=== PATIENT | male | born 1955 | race Caucasian/White ===

== ENCOUNTER 2016-09-15 08:47 | Outpatient (RCR) | payer OTHER | END 2016-11-14 14:37 | disposition home or self-care (01) | LOC: PT 08:47 | DX: T84.84XD Pain due to internal orthopedic prosthetic devices, implants and grafts, subsequent encounter (principal) ==

== ENCOUNTER → 2016-11-03 | Outpatient (CLI) | payer OTHER | LOC: LAB 08:07 | DX: E11.9 Type 2 diabetes mellitus without complications (principal); I10 Essential (primary) hypertension; E78.4 Other hyperlipidemia ==

== ENCOUNTER → 2017-02-03 | Outpatient (CLI) | payer OTHER | LOC: LAB 09:42 | DX: E11.8 Type 2 diabetes mellitus with unspecified complications (principal); E78.4 Other hyperlipidemia ==

== ENCOUNTER → 2017-05-08 | Outpatient (CLI) | payer OTHER | LOC: LAB 08:06 | DX: I10 Essential (primary) hypertension (principal); E11.9 Type 2 diabetes mellitus without complications; E78.4 Other hyperlipidemia; Z12.5 Encounter for screening for malignant neoplasm of prostate ==

== ENCOUNTER 2017-11-08 08:30 | Outpatient (RCR) | payer OTHER | END 2017-11-21 | disposition home or self-care (01) | LOC: PT | DX: T84.093D Other mechanical complication of internal left knee prosthesis, subsequent encounter (principal); Z96.652 Presence of left artificial knee joint ==

== ENCOUNTER 2019-07-15 09:00 | Outpatient (RCR) | payer OTHER | END 2019-07-15 09:30 | disposition still patient (30) | LOC: PT 09:00 | DX: M25.522 Pain in left elbow (principal) ==